=== PATIENT | female | born 1960 | race Caucasian/White ===

== ENCOUNTER 2024-06-25 13:24 | Outpatient (CLI) | payer MEDICARE, OTHER | END 2024-06-25 13:25 | disposition home or self-care (01) | LOC: BICMRI 13:24 | PROVIDERS: ATTEND Orthopaedic Surgery | DX: M47.12 Other spondylosis with myelopathy, cervical region (principal); M50.021 Cervical disc disorder at C4-C5 level with myelopathy; M50.022 Cervical disc disorder at C5-C6 level with myelopathy; G95.29 Other cord compression | CPT/HCPCS: 72141 ==